=== PATIENT | female | born 1965 | race Caucasian/White ===

== ENCOUNTER 2022-10-14 08:36 | Emergency (ER) | payer OTHER, SELFPAY ==
[2022-10-14] VITALS (24 sets, daily range): BP systolic 116–204; BP diastolic 72–112; PULSE 72–88; RESP 10–26; TEMP 36.9; O2SAT 96–100
--- NOTE | ~2022-10-14 | XR_ITS ---
EXAMINATION: XR chest 2V DATE: 10/14/2022 09:07 INDICATION: Shortness of breath TECHNIQUE: PA and lateral views of the chest are obtained. COMPARISON: 07/26/2013 FINDINGS: The lungs are free of acute opacities. No pleural effusion or pneumothorax. The cardiomedia stinal silhouette is normal. There is mild thoracic spondylosis. Surgical clips in the right upper qu adrant are likely from prior cholecystectomy. IMPRESSION: 1. No acute cardiopulmonary abnormality. Reviewed, dictated and finalized at location L. DIRECTOR
--- NOTE | ~2022-10-14 | CT_ITS ---
Noncontrast CT scan of the cervical spine Technique: Multiple contiguous axial [address] images of the cervical spine were obtained and rec onstructed in 2D sagittal and coronal planes on the acquisition scanner. Dose reduction technique was used on this scan by utilizing automated exposure control, adjustment of the mA and/or kV according to patient size. Clinical History: Pain Findings: No fracture identified. Minimal grade 1 anterolisthesis of C3 over C4 noted. There are mild degenerative disc changes at C5-C6 and C6-C7. There is uncovertebral degenerative change at C5-C6 an d C6-C7. There is mild facet arthropathy at the left C3-C4 facet joint. Probable disc bulge and mild canal stenosis at C6-C7. No prevertebral soft tissue swelling. Impression: No fracture. Minimal grade 1 anterolisthesis of C3 over C4. Mild degenerative changes, as detailed above. Reviewed, dictated and finalized at [facility]. ICES CLERK Impression: No fracture. Minimal grade 1 anterolisthesis of C3 over C4. Mild degenerative changes, as detailed above.
--- NOTE | 2022-10-14 08:44 | ECG_ITS ---
Measurements Intervals [place] Rate: 79 P: 41 MD: 171 QRS: 7 QRSD: 101 T: 117 QT: 391 QTc: 450 Interpretive Statements SINUS RHYTHM BASELINE ARTIFACT MODERATE T-WAVE ABNORMALITY, CONSIDER LATERAL ISCHEMIA ABNORMAL ECG NO PREVIOUS ECG AVAILABLE FOR COMPARISON Electronically Signed On 10-14-2022 17:49:38 MANUFACTURING MECHANIC by Jerome Michel M.D.
[2022-10-14 08:59] LABS: Basophils Percent Auto 0.6 % (0.2-1.2); Eosinophils Absolute Auto 0.2 K/mm3 (0-0.3); Eosinophils Percent Auto 2.3 % (0-4.4); Hematocrit 44.5 % (37.0-47.0); Hemoglobin 15.3 g/dL (12.0-15.0); Immature Granulocyte Absolute 0.02 K/mm3 (0.00-0.031); Immature Granulocyte Percent A 0.3 % (0-0.5); Lymphocytes Absolute Auto 1.79 K/mm3 (0.9-3.2); Lymphocytes Percent Auto 25.6 % (18.3-44.2); Mean Corpuscular HGB Conc 34.4 g/dl (32-36); Mean Corpuscular Hemoglobin 31.2 pg (26-34); Mean Corpuscular Volume 90.6 fl (80-100); Mean Platelet Volume 9.4 fl (7.4-10.4); Monocytes Absolute Auto 0.5 K/mm3 (0.1-0.6); Monocytes Percent Auto 7.6 % (2.6-8.5); Neutrophils Absolute Auto 4.5 K/mm3 (1.3-6.7); Neutrophils Percent Auto 63.6 % (45.5-73.1); Platelet Count Result 208 k/mm3 (150-375); Red Blood Count 4.91 M/mm3 (4.2-5.4); Red Cell Distribution Width 11.9 % (11.5-14.5)
[2022-10-14 09:09] LABS: Alanine Aminotransferase 38 U/L (6-35); Albumin Level 4.7 g/dL (3.5-5.1); Alkaline Phosphatase 101 U/L (38-126); Anion Gap 7 mmol/L (8-16); Aspartate Amino Transferase 40 U/L (14-36); Bilirubin,Total 0.7 mg/dL (0.2-1.3); Blood Urea Nitrogen 17 mg/dL (7-17); Calcium 9.1 mg/dL (8.4-10.2); Carbon Dioxide 31 mmol/L (22-30); Chloride 98 mmol/L (98-107); Estimated Glomerular Filt Rate > 60; Glucose 105 mg/dL (65-110); Lipase 301 U/L (23-300); Sodium 136 mmol/L (137-145)
[2022-10-14 09:10] LABS: Partial Thromboplastin Time 25.7 SECONDS (22.3-36.8); Prothrombin Time 13.1 Seconds (11.1-14.7)
[2022-10-14 09:20] LABS: Troponin I < 0.012 ng/mL (0.000-0.034)
--- NOTE | 2022-10-14 11:09 | ED.GENADULT ---
HPI - General Adult General Chief complaint: Recheck/Abnormal Lab/Rx Stated complaint: htn Time Seen by Provider: 10/14/22 08:42 Source: patient and family Mode of arrival: ambulatory Limitations: no limitations History of Present Illness HPI narrative: 57-year-old with a history of hypertension here with complaints of shortness of breath, not feeling well, elevated blood pressure pain radiating into her left arm for past few days. Patient states that her blood pressure has been elevated., Was seen by her primary doctor this morning and was advised to go to the ER. She presently has no chest pain. She denies any cough, fever or chills. She states that she gets tingling sensation in left arm And also has neck pain for past few weeks. She denies any trauma. Onset (ago): day(s) (2) Radiation: neck Severity: moderate Quality: aching Pain Consistency: intermittent Relieving factors: none Exacerbating factors: none Associated symptoms: denies other symptoms Treatments prior to arrival: none Related Data Home Medications Medication Instructions Recorded Confirmed atorvastatin 20 mg tablet mg 10/14/22 fluoxetine 10 mg capsule mg 10/14/22 hydrochlorothiazide 25 mg tablet mg 10/14/22 losartan 100 mg tablet mg 10/14/22 nicotine 7 mg/24 hr daily 10/14/22 transdermal patch Allergies Allergy/AdvReac Type Severity Reaction Status Date / Time No Known Allergies Allergy Unknown Verified 10/14/22 08:47 Review of Systems Review of Systems: All systems reviewed & are unremarkable except as noted in HPI and below Constitutional: Constitutional: Reports no additional constitutional complaints Eyes: Eyes: Reports no additional eye complaints ENT: Reports system reviewed and no additional complaints, except as documented Cardiovascular: Cardiovascular: Reports no additional cardiovascular complaints Respiratory: Respiratory: Reports no additional respiratory complaints Gastrointestinal: Gastrointestinal: Reports no additional gastrointestinal complaints Musculoskeletal: Musculoskeletal: Reports as per HPI Neurologic: Reports system reviewed and no additional complaints, except as documented Psychiatric: Psychiatric: Reports no additional psychiatric complaints Exam Narrative: GENERAL: Well-appearing, well-nourished, and in no acute distress. HEAD: Normocephalic, atraumatic. EYES: PERRLA and EOMI. NECK: Supple. CHEST: Clear to auscultation. No respiratory distress. HEART: Regular rate and rhythm. No murmur heard. Normal peripheral pulses. ABDOMEN: Soft, nontender, nondistended, normal active bowel sounds. EXTREMITIES: Normal range of motion. No edema. SKIN: Warm, dry, no rash. NEURO: No focal deficits. Alert and oriented x3. PSYCH: Normal mood and affect. Course Course Emergency Course: 57-year-old with a history of hypertension now having shortness of breath but her lungs are clear and SPO2 is normal, she appears to be anxious however because of her elevated blood pressure and shortness of breath could be partly her anxiety however she was also complaining of left arm tingling sensation but no significant chest pain when I examined her neck she has some mild tenderness in the C4-C5-C6 area. CT of the C-spine shows some DJD at C4 level her EKG is unremarkable her blood pressure gradually dropped while she was in the ER to 128/76 Without any intervention Inform patient about her lab work, CT findings. Recommended her to continue home medication. Vital Signs Vital signs: Vital Signs Temperature 36.9 C 10/14/22 08:41 Pulse Rate 88 10/14/22 08:41 Respiratory Rate 13 10/14/22 08:41 Blood Pressure 204/112 H 10/14/22 08:41 Pulse Oximetry 100 10/14/22 08:41 Temperature 36.9 C 10/14/22 08:41 Pulse Rate 87 10/14/22 09:15 Respiratory Rate 11 L 10/14/22 09:15 Blood Pressure 165/93 H 10/14/22 09:09 Pulse Oximetry 99 10/14/22 09:09 Medical Decision Making MDM Narrative
== END 2022-10-14 11:49 | disposition home or self-care (01) ==
PROVIDERS: Emergency Provider Family Medicine; PCP Physician Assistant
DX: M54.2 Cervicalgia (principal); I10 Essential (primary) hypertension
CPT/HCPCS: 36415; 71046; 72125; 80053; 83690; 84484; 85025; 85610; 85730; 93005; 99284

== ENCOUNTER 2022-11-20 11:25 | Emergency (ER) | payer OTHER, SELFPAY ==
[2022-11-20 12:14] VITALS: BP 147/86; PULSE 93; RESP 18; TEMP 36.6; O2SAT 100
[2022-11-20] MEDS: ACETAMINOPHEN 500 MG TABLET 1000 MG PO (14:06)
[2022-11-20] MEDS: KETOROLAC 30 MG/ML VIAL (*BKC) IM (14:06)
[2022-11-20] MEDS: diazePAM INJ (*CRX) 10 MG/2 ML SYRINGE 5 MG IM (14:06)
--- NOTE | 2022-11-20 14:40 | ED.NECK ---
HPI - Neck Pain/Injury General Chief Complaint: Neck Pain/Injury Stated Complaint: neck pain Time Seen by Provider: 11/20/22 13:02 Source: patient Mode of arrival: ambulatory Limitations: no limitations History of Present Illness HPI Narrative: This is a 57 year old female that presents to the ER for neck pain and stiffness ongoing over the last 2 days. No recent injury or trauma. Reports she has been taking Tylenol and Flexeril with little relief. She was evaluated for same about a month ago and told she had a pinched nerve. She was supposed to follow up with her primary doctor today, but decided to come to the ER instead. Reports some tingling down the right arm. Denies fever, erythema, edema, numbness or weakness. Related Data Home Medications Medication Instructions Recorded Confirmed atorvastatin 20 mg tablet mg 10/14/22 fluoxetine 10 mg capsule mg 10/14/22 hydrochlorothiazide 25 mg tablet mg 10/14/22 losartan 100 mg tablet mg 10/14/22 nicotine 7 mg/24 hr daily 10/14/22 transdermal patch Allergies Allergy/AdvReac Type Severity Reaction Status Date / Time No Known Allergies Allergy Unknown Verified 11/20/22 12:23 Review of Systems Review of Systems: CONSTITUTIONAL: Denies fever SKIN: Denies rash MUSCULOSKELETAL: Reports joint pain, and myalgia. NEUROLOGIC: Denies numbness, or weakness. All systems reviewed & are unremarkable except as noted in HPI and below PMFSH Past Medical History Medical History (Updated 11/20/22 @ 16:18 by Dorys Little PA-C) History of depression History of hyperlipidemia History of hypertension Social History Social History (Updated 11/20/22 @ 14:49 by Dorys Little PA-C) Smoking status: Current every day smoker Substance use: never Exam Narrative: GENERAL: Well-appearing, well-nourished, and in no acute distress. HEAD: Normocephalic, atraumatic. EYES: EOMI. NECK: Supple. No adenopathy or masses. Tender to palpation of the left trapezius musculature CHEST: Clear to auscultation. No respiratory distress. No wheezes rales or rhonchi HEART: Regular rate and rhythm. No murmur heard. Normal peripheral pulses. EXTREMITIES: Normal range of motion. No edema. Strength equal in bilateral upper extremities (5/5) SKIN: Warm, dry, no rash. NEURO: No focal deficits. Alert and oriented x3. PSYCH: Normal mood and affect Course Course Emergency Course: Patient reports improvement with Tylenol, Toradol and Valium. Agrees with plan of care Vital Signs Vital signs: Vital Signs Temperature 98 F 11/20/22 12:14 Pulse Rate 93 11/20/22 12:14 Respiratory Rate 18 11/20/22 12:14 Blood Pressure 147/86 H 11/20/22 12:14 Pulse Oximetry 100 11/20/22 12:14 Temperature 98 F 11/20/22 12:14 Pulse Rate 93 11/20/22 12:14 Respiratory Rate 18 11/20/22 12:14 Blood Pressure 147/86 H 11/20/22 12:14 Pulse Oximetry 100 11/20/22 12:14 MDM - Neck Pain/Injury MDM Narrative Medical decision making narrative: Patient presents to the emergency department for neck pain ongoing over the last 3 days. She is afebrile and nontoxic-appearing. She is neurovascularly intact. She was evaluated for the same about a month ago and had a CT scan of her cervical spine which showed some degenerative changes. No acute abnormalities. No new injuries or trauma. She was given a dose of Tylenol, Toradol and Valium with improvement. She was instructed to continue to have follow-up with her primary provider. Will also be given follow-up with neurosurgery. She was given warnings to return to the ER Differential Diagnosis Differential diagnosis: Likely disc disorder of cervical region, cervical radiculopathy and strain of neck muscle Critical Care Time Critical Care Time Critical Care Time: No Discharge Plan Discharge Clinical Impression: Cervical radiculopathy Patient Disposition: Home, Self-Care Condition: Stable Instructions: Cervical Radiculopathy
[2022-11-20 16:27] VITALS: BP 140/80; PULSE 85; RESP 18; O2SAT 100
== END 2022-11-20 16:29 | disposition home or self-care (01) ==
PROVIDERS: Emergency Provider Physician Assistant; PCP Physician Assistant
DX: M54.12 Radiculopathy, cervical region (principal); E78.5 Hyperlipidemia, unspecified; I10 Essential (primary) hypertension; F32.A Depression, unspecified; F17.200 Nicotine dependence, unspecified, uncomplicated
CPT/HCPCS: 96372; 99284; A9270; J1885; J3360

== ENCOUNTER 2023-01-11 13:46 | Outpatient (CLI) | payer OTHER, SELFPAY ==
--- NOTE | ~2023-01-11 | MR_ITS ---
MRI of the cervical spine Clinical History: Neck pain Technique: Axial T2-weighted and gradient images, and sagittal T1-weighted, T2-weighted, and STIR jose armando ges were acquired. Findings: There is straightening of the normal cervical lordosis. No fracture or subluxation evident. No suspicious bone marrow signal reality evident. At C2-C3, there is no disc bulge or herniation. No spinal canal stenosis, cord compression, or neural foraminal narrowing. There is left-sided facet arthropathy. At C3-C4, there is mild disc osteophyte complex, with left facet arthropathy. There is left neural fo raminal narrowing. Right neural foramen preserved. No spinal canal stenosis or cord compression. At C4-C5, there is central disc osteophyte complex which may minimally flatten the ventral cord. Bila teral neural foramina are preserved. At C5-C6, there is minimal disc osteophyte complex. There is probable mild left neural foraminal narr owing. No spinal canal stenosis or cord compression evident. At C6-C7, there is mild disc osteophyte complex, with mild canal stenosis but no jean cord compressi on. There is bilateral neural foraminal narrowing. No abnormal signal in the spinal cord. Paravertebral soft tissues are unremarkable. Impression: Mild degenerative spondylosis overall, as detailed above. Possible minimal flattening of the ventral cord at C4-C5 related to central disc osteophyte complex. Multilevel neural foraminal narrowing, as detailed above. Reviewed, dictated and finalized at [facility]. Impression: Mild degenerative spondylosis overall, as detailed above. Possible minimal flat tening of the ventral cord at C4-C5 related to central disc osteophyte complex. Multilevel neural foraminal narrowing, as detailed above.
== END 2023-01-11 13:47 | disposition home or self-care (01) ==
LOC: ANHIMG 13:55
PROVIDERS: PCP Physician Assistant; Visit Provider Neurological Surgery
DX: M47.22 Other spondylosis with radiculopathy, cervical region (principal)
CPT/HCPCS: 72141

== ENCOUNTER 2025-04-10 10:08 | Outpatient (CLI) | payer OTHER, SELFPAY ==
--- NOTE | ~2025-04-10 | XR_ITS ---
EXAM/ PROCEDURE: XR lumbar spine 2-3V - 04/10/2025 10:40 CDT HISTORY: 60 years old Female with chronic bilateral low back pain X 2YRS COMPARISON: None available TECHNIQUE: Four view(s) FINDINGS/ IMPRESSION: There are no fractures or dislocations.Multilevel degenerative changes are seen. Grade 1 anterolisthe sis of L4 on L5, likely degenerative. Cholecystectomy clips are seen. Reviewed, dictated and finalized at location A.
== END 2025-04-10 10:09 | disposition home or self-care (01) ==
PROVIDERS: PCP Physician Assistant; Visit Provider Physician Assistant
DX: M47.816 Spondylosis without myelopathy or radiculopathy, lumbar region (principal); Z90.49 Acquired absence of other specified parts of digestive tract
CPT/HCPCS: 72100

== ENCOUNTER 2025-05-11 07:43 | Outpatient (RCR) | payer OTHER, SELFPAY ==
--- NOTE | 2025-05-11 11:01 | OPREHPOC ---
Outpatient Therapy Plan of Care This is a Multidisciplinary Plan of Care that may contain components documented by all disciplines (PT, OT, and ST.) PT Problem 1 PT Problem #1 Knowledge Deficit PT Goal 1 Goal / Goal Update [place] with HEP Target Visit 4 PT Goal 2 Goal / Goal Update Report no leg pain greater than 1/10 for 2 consecutive weeks Target Visit 8 PT Problem 2 PT Problem #2 Impaired Range of Motion PT Goal 1 Goal / Goal Update 1. Demonstrate minimal piriformis restriction bialterally 2. Demonstrate 40 degrees keyla hip abduction to reduce capsular restriction Target Visit 8 PT Problem 3 PT Problem #3 Impaired Sensation PT Goal 1 Goal / Goal Update 1. Improve keyla hip abduction to 45 to improve lateral hip stability with ADLs 2. Improve keyla hip flexion strength to 4/5 to improve foot clearance Target Visit 8
--- NOTE | 2025-05-11 11:01 | PTOPEVAL1 ---
Assessment and note entered by Robb De La Cruz, PT Evaluation Information Assessment Status Evaluation ICD-10 Condition Codes (PT) Pain in low back M54.50,Radiculopathy, lumbar region M54.16 Onset 2+ years Subjective Information Reports that has history of low back pain with round of epidurals in 2001. Feels that pain is on both sides but she is having more pain on the left leg. Reports that she had x-rays completed but has not had an MRI at this time. Pain is the worst at night. Reports that she has had some twitching and cramping in her toes. She recently had labs completed and everything looked good. She only ever has pain directly in the back when she is sitting ofr a long time. Reported Pain Level Pain Score 1: Self Report Assessment PT Clinical Summary Patient presents with signs and symptoms consistent with combination stenotic and discogenic back pain both relieved with decompression. Patient will benefit form skilled therapy to promote hip disassociation, leg strength, and core stabilization to reduce lumbar strain with ADL and functional activity to reduce and resolve radicular symptoms. Plan of Care Interventions Electrical Stimulation,Manual Therapy,Neuro Re- education,Therapeutic Activities,Therapeutic Exercise PT Services Indicated Yes Treatment Frequency and 2x/week for 8 visits Duration These treatments will address the objective and functional deficits as defined above. The patient will be advanced safely and appropriately in order for the patient to progress towards his/her prior level of function. Additional exercises will be introduced and as well as a comprehensive home exercise program upon discharge, if needed, ?to ensure carryover of functional gains achieved in the clinic. This treatment plan has been reviewed and agreement upon by the patient.
--- NOTE | 2025-05-18 08:21 | PTOPDC ---
Assessment and note entered by Robb De La Cruz, PT Evaluation Information Assessment Status Discharge - Pt Not Present ICD-10 Condition Codes (PT) Pain in low back M54.50,Radiculopathy, lumbar region M54.16 Onset 2+ years Subjective Information Patient contacted clinic after evaluation requesting discharge. States that she had a thorough evaluation and would like to perform independently due to high co-pay. Assessment PT Clinical Summary Patient to be discharged at this time per patient request. Please refer to evaluation note for discharge status. Plan of Care PT Services Indicated Yes
== END 2025-05-18 13:03 | disposition home or self-care (01) ==
LOC: ANHPT 07:43
PROVIDERS: PCP Physician Assistant; Visit Provider Physician Assistant
DX: M51.360 Other intervertebral disc degeneration, lumbar region with discogenic back pain only (principal)
CPT/HCPCS: 97110; 97140; 97161